=== PATIENT | female | born 1995 | race Caucasian/White ===

== ENCOUNTER 2017-12-01 10:50 | Outpatient (CLI) | payer OTHER ==
[~2017-12-01] VITALS: Ht 157.5 cm; Wt 63.0 kg
[~2017-12-01 10:50] MED LIST: PRENATAL TABLE1 EAC3 PO
[2017-12-01 11:05] VITALS: BP 112/77
[2017-12-01 11:22] VITALS: BP 119/74
[2017-12-01 13:01] VITALS: BP 115/73
[2017-12-01 13:29] VITALS: BP 121/80
[2017-12-02] MEDS ORDERED: IBUPROFEN800 MG PO (02:35)
== END 2017-12-01 14:00 | disposition home or self-care (01) ==
LOC: LDRP-OP 10:50 → 2WEST 10:51
DX: O47.1 False labor at or after 37 completed weeks of gestation (principal); Z3A.40 40 weeks gestation of pregnancy
CPT/HCPCS: 59025; C1755; G0378

== ENCOUNTER 2017-12-01 17:58 | Inpatient (IN) | payer OTHER ==
[2017-12-01] VITALS (11 sets, daily range): BP systolic 111–137; BP diastolic 63–90
[~2017-12-01] VITALS: Ht 160 cm; Wt 63.0 kg
[2017-12-01 18:49] LABS: BASOPHIL (%) 0.3 % (0-1); EOSINOPHIL (%) 0.2 % (0-5); HEMOGLOBIN 10.7 G/DL (11.9-15.5); IMMATURE GRANULOCYTE (%) 0.4 % (0.0-0.7); LYMPHOCYTE (%) 15.5 % (15-42); LYMPHOCYTE COUNT 1.9 K/uL (1.0-2.8); MCH 24.7 PG (29.0-34.0); MCHC 31.5 G/DL (30.0-36.0); MCV 78.5 FL (83-99); MONOCYTE (%) 7.5 % (3-12); MONOCYTE COUNT 0.9 K/uL (0-0.8); NEUTROPHIL (%) 76.1 % (45-76); NEUTROPHIL COUNT 9.4 K/uL (1.8-6.4); PLATELET COUNT 240 K/uL (156-360); RBC DIS.WIDTH-CV 14.4 % (11.8-14.6); RBC DIS.WIDTH-SD 40.3 % (39-53); RED BLOOD COUNT 4.33 M/uL (3.80-5.20); WHITE BLOOD COUNT 12.3 K/uL (4.1-10.2)
[2017-12-02] VITALS (13 sets, daily range): BP systolic 107–134; BP diastolic 59–81
[2017-12-02] MEDS ORDERED: IBUPROFEN800 MG PO (02:35)
[2017-12-03 06:55] VITALS: BP 107/56
[2017-12-03 14:30] VITALS: BP 118/77
[2017-12-03 23:30] VITALS: BP 119/74
[2017-12-04 07:35] VITALS: BP 133/88
[2017-12-05] MEDS ORDERED: FIORICET 50-301 EAC1 PO (21:07)
[2017-12-05] MEDS ORDERED: ZOFRAN4 MG PO (22:18)
== END 2017-12-04 13:52 | disposition home or self-care (01) | DRG 775 ==
LOC: LDRP-OP 17:58 → 2WEST 17:59 → LDRP-OP 01-04 14:07
PROVIDERS: Midwife
PROC: 3E0R3BZ Introduction of Anesthetic Agent into Spinal Canal, Percutaneous Approach (ICD-10-PCS; principal; 2017-12-01)
PROC: 00HU33Z Insertion of Infusion Device into Spinal Canal, Percutaneous Approach (ICD-10-PCS; principal; 2017-12-01)
PROC: 10907ZC Drainage of Amniotic Fluid, Therapeutic from Products of Conception, Via Natural or Artificial Opening (ICD-10-PCS; 2017-12-01)
PROC: 10E0XZZ Delivery of Products of Conception, External Approach (ICD-10-PCS; 2017-12-02)
DX: O69.81X0 Labor and delivery complicated by cord around neck, without compression, not applicable or unspecified (principal); O99.824 Streptococcus B carrier state complicating childbirth; G97.1 Other reaction to spinal and lumbar puncture; Y84.8 Other medical procedures as the cause of abnormal reaction of the patient, or of later complication, without mention of misadventure at the time of the procedure; Z3A.40 40 weeks gestation of pregnancy; Z37.0 Single live birth
CPT/HCPCS: 59025; 83030; 85025; 86850; 86870; 86900; 86901; C1755; G0378; J2540; J2790; J3010; J7120

== ENCOUNTER 2017-12-05 17:23 | Emergency (ER) | payer OTHER ==
[~2017-12-05] VITALS: Ht 157.5 cm; Wt 57.2 kg
[~2017-12-05 17:23] MED LIST changes: +IBUPROFEN800 MG PO
[2017-12-05] MEDS ORDERED: FIORICET 50-301 EAC1 PO (21:07)
[2017-12-05 21:56] LABS: APPEARANCE CLEAR ((CLEAR)); BILIRUBIN NEGATIVE; BLOOD MODERATE; COLOR YELLOW ((YELLOW)); GLUCOSE (STRIP) NEGATIVE; KETONES 20; LEUKOCYTES TRACE; NITRITE NEGATIVE; PROTEIN (STRIP) NEGATIVE; SPECIFIC GRAVITY 1.017 (1.000-1.030); UROBILINOGEN 0.2 MG/DL (0.2-1.0)
[2017-12-05 22:08] LABS: BACTERIA RARE /HPF; EPITHELIAL CELLS RARE /HPF; MUCUS TRACE /LPF; RED BLOOD CELLS 0-5 /HPF (0-5); UCUL ADDED? YES; WHITE BLOOD CELLS 15-20 /HPF (0-5)
[2017-12-05] MEDS ORDERED: ZOFRAN4 MG PO (22:18)
[2017-12-05 22:43] VITALS: BP 114/88
== END 2017-12-05 22:44 | disposition home or self-care (01) ==
LOC: EME 17:23
PROVIDERS: Nurse Practitioner Family
DX: O89.4 Spinal and epidural anesthesia-induced headache during the puerperium (principal)
CPT/HCPCS: 81003; 87086; 99281; 99285; J1200; J1885; J2765; J7030

== ENCOUNTER 2017-12-06 13:56 | Emergency (ER) | payer OTHER ==
[~2017-12-06] VITALS: Ht 157.5 cm; Wt 58.3 kg
[~2017-12-06 13:56] MED LIST changes: +FIORICET 50-301 EAC1 PO; +ZOFRAN4 MG PO
[2017-12-06 17:23] VITALS: BP 131/81
== END 2017-12-06 17:31 | disposition home or self-care (01) ==
LOC: EME 13:56
DX: G97.1 Other reaction to spinal and lumbar puncture (principal); Y84.4 Aspiration of fluid as the cause of abnormal reaction of the patient, or of later complication, without mention of misadventure at the time of the procedure
CPT/HCPCS: 99281; 99284